=== PATIENT | male | born 1985 | race African-American/Black ===

== ENCOUNTER 2020-09-27 14:37 | Emergency (ER) | payer OTHER ==
[~2020-09-27] VITALS: Ht 172.7 cm; Wt 55.0 kg
[~2020-09-27 14:37] MED LIST: CETI1SOL36 PO; ESTR1TAB17 PO; MIRT15TA6 PO; MOME13HF IH; PERM60CR4 TP; PROAIR; SEROQUEL
[2020-09-27] MEDS ORDERED: MORPHINE SULFATE 4 MG/ML CPJ (NOT FOR IM USE) IV STA (15:52)
[2020-09-27] MEDS ORDERED: ONDANSETRON HCL 4MG/2ML INJ IV STA (15:52)
[2020-09-27] MEDS ORDERED: ETOMIDATE 2MG/ML 10ML VIAL IV ONE (16:00)
[2020-09-27] MEDS ORDERED: SODIUM CHLORIDE 0.9% 1,000 ML IV ONE (16:00)
[2020-09-27] MEDS ORDERED: MORPHINE SULFATE 4 MG/ML CPJ (NOT FOR IM USE) IV ONE (16:00)
[2020-09-27 17:37] VITALS: BP 128/78
== END 2020-09-27 17:53 | disposition home or self-care (01) ==
LOC: ER 14:49
DX: S43.085A Other dislocation of left shoulder joint, initial encounter (principal); Y09 Assault by unspecified means; Y93.89 Activity, other specified; Y92.89 Other specified places as the place of occurrence of the external cause; R03.0 Elevated blood-pressure reading, without diagnosis of hypertension
CPT/HCPCS: 23650; 73030; 96361; 96374; 99284; J2270; J2405; J7030; L3670